=== PATIENT | male | born 1975 | race Two or more races ===

== ENCOUNTER 2018-10-20 11:30 | Inpatient (IN) | payer OTHER ==
[~2018-10-20] VITALS: Ht 152.4 cm; Wt 90.7 kg
[2018-10-20] MEDS ORDERED: ALPRAZOLAM2 MG PO (15:05)
[2018-10-20] MEDS ORDERED: ATARAX10 MG PO (15:05)
[2018-10-20] MEDS ORDERED: ESCITALOPRAM OX10 MG PO (15:06)
== END 2018-10-28 15:48 | disposition home or self-care (01) | DRG 330 ==
LOC: SURH 10-22 08:42 → O/R 10-22 08:42 → SURH 10-22 11:00
PROVIDERS: Colon & Rectal Surgery
PROC: 04QE0ZZ Repair Right Internal Iliac Artery, Open Approach (ICD-10-PCS; 2018-10-22)
PROC: 0DBN0ZZ Excision of Sigmoid Colon, Open Approach (ICD-10-PCS; 2018-10-22)
PROC: 0D1B0Z4 Bypass Ileum to Cutaneous, Open Approach (ICD-10-PCS; 2018-10-22)
PROC: 0DTN0ZZ Resection of Sigmoid Colon, Open Approach (ICD-10-PCS; principal; 2018-10-22 11:00)
DX: K57.20 Diverticulitis of large intestine with perforation and abscess without bleeding (principal); K92.1 Melena; I97.51 Accidental puncture and laceration of a circulatory system organ or structure during a circulatory system procedure; K43.5 Parastomal hernia without obstruction or gangrene; K66.0 Peritoneal adhesions (postprocedural) (postinfection)

== ENCOUNTER 2019-02-03 10:18 | Outpatient (CLI) | payer OTHER ==
[~2019-02-03 10:18] MED LIST: ALPRAZOLAM2 MG PO; ATARAX10 MG PO; ESCITALOPRAM OX10 MG PO
== END 2019-02-03 10:27 | disposition home or self-care (01) ==
LOC: RX STUDY 10:18
DX: K57.20 Diverticulitis of large intestine with perforation and abscess without bleeding (principal)

== ENCOUNTER 2019-02-09 08:30 | Inpatient (IN) | payer OTHER ==
[~2019-02-09] VITALS: Ht 177.8 cm; Wt 88.9 kg
== END 2019-02-13 18:01 | disposition home or self-care (01) | DRG 330 ==
LOC: SURH 02-11 08:30 → O/R 02-11 09:27 → SURH 02-11 11:45
PROVIDERS: ADMIT Colon & Rectal Surgery
PROC: 0DQB4ZZ Repair Ileum, Percutaneous Endoscopic Approach (ICD-10-PCS; principal; 2019-02-11 11:45)
DX: Z43.2 Encounter for attention to ileostomy (principal); K57.32 Diverticulitis of large intestine without perforation or abscess without bleeding; K66.0 Peritoneal adhesions (postprocedural) (postinfection); K43.5 Parastomal hernia without obstruction or gangrene; F17.210 Nicotine dependence, cigarettes, uncomplicated; L80 Vitiligo; R73.01 Impaired fasting glucose

== ENCOUNTER 2019-09-29 22:06 | Emergency (ER) | payer OTHER ==
[~2019-09-29] VITALS: Ht 177.8 cm; Wt 82.6 kg
[2019-09-30] MEDS ORDERED: INTESTINEX680 M1 PO (11:27)
[2019-09-30] MEDS ORDERED: DICY20TA PO (11:27)
== END 2019-09-30 11:37 | disposition home or self-care (01) ==
LOC: ER 22:06
DX: R19.7 Diarrhea, unspecified (principal)

== ENCOUNTER 2019-10-30 05:45 | Day surgery (SDC) | payer OTHER ==
[~2019-10-30 05:45] MED LIST changes: +DICY20TA PO; +INTESTINEX680 M1 PO
== END 2019-10-30 10:15 | disposition home or self-care (01) ==
LOC: AMB-ENDOS 05:45
DX: K57.32 Diverticulitis of large intestine without perforation or abscess without bleeding (principal); K64.1 Second degree hemorrhoids; K62.89 Other specified diseases of anus and rectum

== ENCOUNTER 2021-02-22 06:20 | Day surgery (SDC) | payer OTHER ==
[2021-02-22] MEDS ORDERED: PERCOCET 5-3251 EACH PO (11:43)
[2021-02-22] MEDS ORDERED: COLACE100 MG PO (11:43)
[2021-02-22] MEDS ORDERED: NEURONTIN600 M1 PO (11:43)
== END 2021-02-22 14:35 | disposition home or self-care (01) ==
LOC: CIR.AMB 06:20
PROVIDERS: ATTEND Surgery
DX: K43.0 Incisional hernia with obstruction, without gangrene (principal); Z20.822 Contact with and (suspected) exposure to COVID-19